=== PATIENT | male | born 1985 | race Caucasian/White ===

== ENCOUNTER 2022-11-01 16:03 | Emergency (ER) | payer OTHER ==
[~2022-11-01] VITALS: Ht 175.3 cm; Wt 78.0 kg
[2022-11-01] MEDS ORDERED: LIDOCAINE HCL 1% 20ML VIAL (Pyxis) INJ INFIL ONE (18:45)
[2022-11-01] MEDS ORDERED: BACITRACIN ZINC OINT UDPKT TOP ONE (19:15)
[2022-11-01] MEDS ORDERED: BO1 TP (19:29)
[2022-11-01 20:20] VITALS: BP 132/85
== END 2022-11-01 20:23 ==
LOC: ER 16:03
DX: S61.411A Laceration without foreign body of right hand, initial encounter (principal); X58.XXXA Exposure to other specified factors, initial encounter; Y93.89 Activity, other specified; Y92.89 Other specified places as the place of occurrence of the external cause; Y99.8 Other external cause status
CPT/HCPCS: 12001; 73130; 99283; J3490; Z7610